=== PATIENT | male | born 1965 | race Caucasian/White ===

== ENCOUNTER 2016-08-11 12:19 | Day surgery (SDC) | payer OTHER ==
[~2016-08-11] VITALS: Ht 172.7 cm; Wt 120.0 kg
[2016-08-11] MEDS ORDERED: METFORMIN (13:35)
[2016-08-11] MEDS ORDERED: GLIPIZIDE (13:35)
[2016-08-11] MEDS ORDERED: LATUDA (13:35)
[2016-08-11] MEDS ORDERED: ASPIRIN (13:35)
[2016-08-11 13:37] VITALS: Ht 172.7 cm; Wt 120.0 kg
[2016-08-11] MEDS ORDERED: MIDAZOLAM 1 MG/ML 2 ML INJ ONE (14:22)
[2016-08-11] MEDS ORDERED: PROPOFOL 20 ML ONE (14:22)
[2016-08-11] MEDS ORDERED: LIDOCAINE 2% (SDV) 5 ML INJ ONE (14:22)
[2016-08-11 14:33] VITALS: BP 120/62; PULSE 88; RESP 18
--- NOTE | 2016-08-11 15:08 | GILP ---
DATE OF PROCEDURE: 08/11/2016 PROCEDURE: Esophagogastroduodenoscopy with biopsies. INDICATIONS FOR PROCEDURE: The patient is being evaluated for dyspepsia, abdominal pain. INSTRUMENT USED: Olympus colonoscope following findings: ESOPHAGUS: The distal esophagus shows erythema and edema of the mucosa of a moderate degree. STOMACH: Upon entrance to the stomach, air was insufflated, the gastric lynch distended normally. The mucosa of the fundus, body and antrum of the stomach shows erythema and edema of a moderate degr ee. Biopsies were obtained to rule out H. pylori infection. The instrument was withdrawn reexamini ng the mucosa in detail. No additional abnormalities are noted. IMPRESSION 1. Distal esophagitis. 2. Gastritis, rule out Helicobacter pylori infection. PLAN: The patient will be treated with proton pump inhibitors. Further recommendation will depend on patient's clinical course as well as review of biopsies. Dictated By: NELIA HI Conf#: [id number] DID#: [id number]
--- NOTE | 2016-08-11 15:15 | GILP ---
DATE OF PROCEDURE: 08/11/2016 INDICATIONS FOR PROCEDURE: The patient is being evaluated for changes in bowel habits. PROCEDURE PERFORMED: Colonoscopy to cecum. PREMEDICATION: Monitored anesthesia care by anesthesiologist. SURGEON: Nelia Foy MD. INSTRUMENT USED: Olympus colonoscope. PREPARATION: Was adequate. TECHNIQUE: After informed consent, with the patient/relatives understanding the procedure, its indic ations potential risks and complications, including but not limited to: allergic reaction, bleeding, perforation, infection, missed lesions and after all pertinent questions were answered to the patie nt's satisfaction, the patient/relatives signed the witnessed informed consent. Following this, premedication was administered slowly IV push by under careful cardiovascular and re spiratory monitoring with pulse oximetry, automatic blood pressure and hall monitor. Once the sedativ e effect was achieved, the patient was placed in the left lateral decubitus position, digital rectal examination was performed. The colonoscope was then introduced and advanced under visual control th roughout all segments of the colon including: the rectum, sigmoid, descending colon, splenic flexure , transverse colon, hepatic flexure, ascending colon and finally reaching the cecum which was clearl y identified by transillumination, finger indentation and the ileocecal valve. Careful examination o f the mucosa of the lower gastrointestinal tract both on insertion as well as withdrawal of the inst rument disclosed the following findings: Rectal Examination: No evidence of perirectal disease, no masses. Colonic Mucosa: The colonic mucosa is unremarkable with exception of evidence of a right colectomy w ith an end-to-side anastomosis. The anastomosis is patent and with normal mucosa. The instrument was then withdrawn. On withdrawal of the instrument, no additional abnormalities we re noted with exception of moderate sized internal hemorrhoids. IMPRESSION: Status post right colectomy, end-to-side anastomosis. The anastomosis is patent with n ormal mucosa. Moderate sized internal hemorrhoids. PLAN: The patient will follow up as an outpatient. Annual Hemoccult stool testing is recommended a nd colonoscopy in 5 years is recommended. We will attempt to obtain records regarding the patient's previous surgery as he did not list colect jewel in his initial evaluation. Dictated By: NELIA FOY MS/ALONSO Conf#: [id number] DID#: [id number]
[2016-08-11 15:29] VITALS: BP 121/78; PULSE 70; RESP 12
== END 2016-08-11 17:13 | disposition home or self-care (01) ==
LOC: GIL 12:19
PROVIDERS: ATTEND Internal Medicine Gastroenterology
DX: R19.4 Change in bowel habit (principal); K29.30 Chronic superficial gastritis without bleeding; K20.8 Other esophagitis; I10 Essential (primary) hypertension; E11.9 Type 2 diabetes mellitus without complications; E78.5 Hyperlipidemia, unspecified; E66.01 Morbid (severe) obesity due to excess calories; Z68.41 Body mass index [BMI] 40.0-44.9, adult
CPT/HCPCS: 43239; 45378; 82962; 88305; 88312; J2250; Z7610